=== PATIENT | female | born 1980 | race Caucasian/White ===

== ENCOUNTER → 2017-07-15 | Outpatient (CLI) | payer OTHER ==
[~2017-07-15] MED LIST: ACHYD1T PO; BIRTH CONTROL PO; CYCL10TA9 PO; FERR-57 PO; HYDR-3454 PO; IBP800T PO; IBUP200C92 PO; OMEP20CA12 PO; PREN1TAB39 PO
--- NOTE | 2017-07-15 14:32 | Diagnostic Imaging Report ---
INDICATION: survey. TECHNIQUE: Multiple real-time grayscale images were obtained over the gravid uterus. COMPARISON: None FINDINGS: heart rate is 152 beats per minute. The placenta is anterior. No placenta previa. The cervix is 4.5 cm in length and is closed. The maternal adnexa are obscured by bowel gas. survey demonstrates two umbilical arteries, visualized bladder, cord insertion, kidneys, stomach, four-chamber view, no ventriculomegaly and normal appearance of the posterior fossa. The spine is not well seen due to position. Biometrical measurements are as follows: Biparietal 4.5 cm, age 19 weeks 5 days. Head circumference 16.8 cm, age 19 weeks 4 days. Abdominal circumference 14.0 cm, age 19 weeks 3 days. Femur length 3.0 cm, age 19 weeks 3 days. Sonographic estimate age: 19 weeks 4 days. Sonographic estimated date of delivery: 12/05/17. Estimated Weight: 289 gm (+/- 42 gm). LMP percentile: 42%. heart rate: 152 beats per minute. number: 1 of 1. IMPRESSION: The spine is not well seen due to position. Ultrasound followup within two weeks to reevaluate is suggested. Dictated by: Dictated on workstation # [id number]
== END ==
LOC: RAD 12:18
PROVIDERS: ATTEND Obstetrics & Gynecology
DX: Z34.92 Encounter for supervision of normal pregnancy, unspecified, second trimester (principal); Z3A.19 19 weeks gestation of pregnancy
CPT/HCPCS: 76805

== ENCOUNTER → 2017-08-28 | Outpatient (CLI) | payer OTHER ==
--- NOTE | 2017-08-28 18:13 | Diagnostic Imaging Report ---
INDICATION: Evaluate anatomy not seen on the prior ultrasound TECHNIQUE: Multiple real-time grayscale images were obtained over the gravid uterus. COMPARISON: 07/15/2017 FINDINGS: A single live intrauterine gestation is noted in a cephalic presentation. The placenta is anteriorly located. heart rate is documented at 140 beats per minute. Evaluation of anatomy is limited secondary to advanced gestational age. Within the limitations of this exam, the spine is grossly unremarkable, though the spine is only imaged in the longitudinal plane and no axial imaging was performed. IMPRESSION: Single live intrauterine gestation in cephalic presentation with a heart rate of 140 beats per minute. Evaluation of the spine is limited, though grossly unremarkable based upon the submitted images. Dictated by: Dictated on workstation # [id number]
== END ==
LOC: RAD 17:35
PROVIDERS: ATTEND Obstetrics & Gynecology
DX: Z34.92 Encounter for supervision of normal pregnancy, unspecified, second trimester (principal); Z3A.00 Weeks of gestation of pregnancy not specified
CPT/HCPCS: 76816

== ENCOUNTER → 2017-11-11 | Outpatient (CLI) | payer OTHER ==
--- NOTE | 2017-11-11 13:29 | Diagnostic Imaging Report ---
INDICATION: Supervision of multigravida. TECHNIQUE: Multiple real-time grayscale images were obtained over the gravid uterus. COMPARISON: 08/28/2017. FINDINGS: There is a single living intrauterine in a cephalic presentation. The amniotic fluid index is 5.8. Placenta is anterior and to the left. There is no previa. Heart rate is 146 beats per minute. The biophysical profile score is 8/8. Biometrical measurements are as follows: Biparietal 9.32 cm, age 38 weeks 0 days. Head circumference 33.64 cm, age 38 weeks 4 days. Abdominal circumference 35.10 cm, age 39 weeks 1 days. Femur length 6.99 cm, age 35 weeks 6 days. Sonographic estimate age: 38 weeks 0 days. Sonographic estimated date of delivery: 11-25-17. Estimated Weight: 3403 gm (+/- 497 gm). LMP percentile: 89%. heart rate: 146 beats per minute. number: 1 of 1. IMPRESSION: 1. Single living intrauterine with sonographically estimated gestational age of 38 weeks 0 days and estimated date of confinement of 11/25/2017. This compares with an established gestational age of 36 weeks 4 days. 2. Low amniotic fluid index of 5.8. 3. Normal biophysical profile score of 8/8. Dictated by: Dictated on workstation # [id number]
== END ==
LOC: RAD 11:56
PROVIDERS: ATTEND Obstetrics & Gynecology
DX: O09.529 Supervision of elderly multigravida, unspecified trimester (principal); Z3A.38 38 weeks gestation of pregnancy
CPT/HCPCS: 76805; 76819

== ENCOUNTER → 2017-11-18 | Outpatient (CLI) | payer OTHER ==
--- NOTE | 2017-11-18 17:55 | Diagnostic Imaging Report ---
INDICATION: Advanced maternal age. FINDINGS: There is a single live fetus in a cephalic presentation. heart rate is recorded at 153 beats per minute. Placenta is anterior and to the left. Amniotic fluid index is 10.8 cm. biophysical profile score is normal at 8 out 8. IMPRESSION: Biophysical profile score 8 out 8. Dictated by: Dictated on workstation # [id number]
== END ==
LOC: RAD 13:45
PROVIDERS: ATTEND Obstetrics & Gynecology
DX: O09.523 Supervision of elderly multigravida, third trimester (principal); Z3A.00 Weeks of gestation of pregnancy not specified
CPT/HCPCS: 76819

== ENCOUNTER 2017-11-29 08:07 | Inpatient (IN) | payer OTHER ==
[2017-11-29] VITALS (45 sets, daily range): BP systolic 117–162; BP diastolic 61–92
[~2017-11-29] VITALS: Ht 170.2 cm; Wt 107.7 kg
[2017-11-29] MEDS ORDERED: OXYTOCIN/NORMAL SALINE 500 ML IV SCH ×2 (08:37→17:10)
[2017-11-29] MEDS ORDERED: D5 LR IV SOLUTION 1,000 ML IV SCH (08:37)
[2017-11-29] MEDS ORDERED: MINERAL OIL CONCENTRATE 99.9% 15 ML UDC TOP SCH (08:45)
[2017-11-29 09:27] LABS: BILIRUBIN,URINE NEGATIVE (NEGATIVE); CLARITY,URINE CLEAR; COLOR,URINE YELLOW; GLUCOSE, URINE (UA) NEGATIVE (NEGATIVE); KETONES,URINE NEGATIVE (NEGATIVE); LEUKOCYTE ESTERASE ,URINE NEGATIVE (NEGATIVE); NITRITE,URINE NEGATIVE (NEGATIVE); PH,URINE 6.5 (5-9); PROTEIN,URINE NEGATIVE (NEGATIVE); UROBILINOGEN,URINE NORMAL (NORMAL)
[2017-11-29 09:29] LABS: BASOPHILS % (AUTO) 0 % (0-10); EOSINOPHILS # (AUTO) 0.1 10^3/uL (0.0-0.3); EOSINOPHILS % (AUTO) 2 % (0-10); HEMATOCRIT 34 % (35-52); HEMOGLOBIN 11.6 G/DL (11.5-16.0); LYMPHOCYTES # (AUTO) 1.5 X 10^3 (1.0-4.0); LYMPHOCYTES % (AUTO) 20 % (12-44); MEAN CORPUSCULAR HEMOGLOBIN 30 PG (25-34); MEAN CORPUSCULAR HGB CONC 34 G/DL (32-36); MEAN CORPUSCULAR VOLUME 89 FL (80-99); MEAN PLATELET VOLUME 10.8 FL (7.4-10.4); MONOCYTES # (AUTO) 0.5 X 10^3 (0.0-1.0); MONOCYTES % (AUTO) 7 % (0-12); NEUTROPHILS # (AUTO) 5.3 X 10^3 (1.8-7.8); NEUTROPHILS % (AUTO) 71 % (42-75); PLATELET COUNT 209 10^3/uL (130-400); RED BLOOD COUNT 3.86 10^6/uL (4.35-5.85); RED CELL DISTRIBUTION WIDTH 15.5 % (10.0-14.5); WHITE BLOOD COUNT 7.5 10^3/uL (4.3-11.0)
[2017-11-29 09:38] LABS: RBC,URINE RARE /HPF
[2017-11-29 09:39] LABS: BACTERIA,URINE FEW /HPF; SQUAMOUS EPITHELIAL CELL,UR 0-2 /HPF; WBC,URINE 0-2 /HPF
[2017-11-29] MEDS ORDERED: LACTATED RINGERS 1,000 ML IV ONE (11:21)
[2017-11-29] MEDS ORDERED: SUFENTA 0.6MCG/ML BUPIVA 0.125 100 ML ONE (11:21)
[2017-11-29] MEDS ORDERED: fentaNYL INJECTION 100 MCG/2 ML AMP ONE (11:42)
[2017-11-29] MEDS ORDERED: BUPIVACAINE 0.25% 30 ML (SENSORCAINE) VIAL ONE (11:42)
[2017-11-29] MEDS ORDERED: CATHETER FLUSH 10 ML SYR IV SCH ×2 (14:00→22:00)
[2017-11-29] MEDS ORDERED: LACTATED RINGERS 1,000 ML IV SCH (14:26)
[2017-11-29] MEDS ORDERED: diphenhydrAMINE 50 MG/ML INJ (BENADRYL) IV PRN (14:30)
[2017-11-29] MEDS ORDERED: EPIDURAL (SUFENTA 0.6MCG/ML BUPIVA 0.125%) 100 ML BAG EPI PRN (14:30)
[2017-11-29] MEDS ORDERED: NALOXONE 0.4 MG/ML 1 ML (NARCAN) VIAL IV PRN ×2 (14:30)
[2017-11-29] MEDS ORDERED: ONDANSETRON 4 MG/2 ML (SDV) Z0FRAN IV PRN (14:30)
[2017-11-29] MEDS ORDERED: METOCLOPRAMIDE INJ 10 MG/2 ML (REGLAN) IV PRN (14:30)
[2017-11-29] MEDS ORDERED: LIDOCAINE/EPI 2% 1:200,00 (XYLOCAINE) 10 ML VIAL ONE (16:24)
[2017-11-29] MEDS ORDERED: MISOPROSTOL 200 MCG (CYTOTEC) TABLET ONE (16:55)
[2017-11-29] MEDS ORDERED: WITCH HAZEL(TUCKS) 40 EA JAR TOP PRN (17:15)
[2017-11-29] MEDS ORDERED: DIBUCAINE (NUPERCAINAL) 1% OINT 30 GM TOP PRN (17:15)
[2017-11-29] MEDS ORDERED: TETANUS,DIPTH,PERTUSS P/F (BOOSTRIX) 0.5 ML VIAL IM ONE (17:15)
[2017-11-29] MEDS ORDERED: ACETAMINOPHEN 500 MG TAB (TYLENOL) PO PRN (17:15)
[2017-11-29] MEDS ORDERED: MEASLES,MUMPS,RUBELLA 1 EA INJ SQ ONE (17:15)
[2017-11-29] MEDS ORDERED: MISOPROSTOL 200 MCG (CYTOTEC) TABLET PR NR (17:15)
[2017-11-29] MEDS ORDERED: BENZOCAINE/MENTHOL (DERMOPLAST) 56 ML CAN TP PRN (17:15)
--- NOTE | 2017-11-29 17:22 | OB Labor & Delivery Record ---
Vag Delivery Note Vag Delivery Note Date of Delivery: 11/29/17 Preoperative Diagnosis: Cris Cardona is a 39 /Para 9/4 ,Gestational Age 39 weeks with Advanced maternal age, induction Postoperative Diagnosis: Same Surgeon: BRITT OSWALD Anesthesia: epidural Delivery Type: vaginal Findings: Viable female , apgars 8/9, weight 7#13oz Lacerations: 1st Intact placenta with 3 vessel cord. No nuchal cord, body cord or shoulder dystocia Cytotec 800 mcg placed for hemorrhage prophylaxis Estimated Blood Loss: 750ml Complications: None Condition: Stable Description of Procedure: The patient is a 39 /Para 9/4 ,Gestational Age 39 weeks with Advanced maternal age, who presented for induction. She was admitted and informed consent was obtained. Her labor course was remarkable for AROM, pitocin augmentation and epidural. She progressed to complete dilatation and began to push. She was then set up for delivery. The infant's head was delivered atraumatically in the ANUPAM position, There was a large amount of bleeding with delivery of the head (5-700 ml). The shoulders and remainder of the infant's body were then delivered without difficulty. Upon delivery, the head was held below the level of the perineum and the mouth and nares were bulb suctioned. The cord was doubly clamped and cut and the was handed off to the pediatric staff. An intact placenta with 3-vessel cord delivered via Tish and there was found to be minimal bleeding.~ Vigorous fundal massage was performed and the fundus was found to be firm. IV oxytocin was given. Examination of the vagina and perineum revealed a 1st laceration repaired in the usual fashion with 3-0 vicryl suture. due to continued bleeding, though slowing, she was given pr cytocec. Following the repair, sponge, instrument and needle counts were correct. Mom and baby were both in stable condition in the labor suite. Vitals - Labs Vital Signs - I&O Vital Signs Date Time Temp Pulse Resp B/P (MAP) Pulse Ox O2 Delivery O2 Flow Rate FiO2 11/29/17 15:50 83 18 128/75 (92) 99 Room Air 11/29/17 15:35 84 18 140/83 (102) 99 Room Air 11/29/17 15:20 80 18 134/78 (96) 100 Room Air 11/29/17 15:05 93 18 127/76 (93) 99 Room Air 4/6/18 14:50 84 18 140/83 (102) 100 Room Air 11/29/17 14:20 74 18 140/72 (94) 99 Room Air 11/29/17 14:05 74 18 140/72 (94) 99 Room Air 11/29/17 13:50 79 18 130/77 (94) 100 Room Air 11/29/17 13:35 79 18 131/73 (92) 99 Room Air 11/29/17 13:20 78 18 125/75 (92) 100 Room Air 11/29/17 13:05 97.0 68 18 149/77 (101) 100 Room Air 11/29/17 12:50 83 18 149/77 (101) 98 Room Air 11/29/17 12:35 83 18 149/77 (101) 98 Room Air 11/29/17 12:16 88 18 117/74 (88) 98 Room Air 11/29/17 12:12 78 18 135/78 (97) 99 Room Air 11/29/17 12:06 83 18 149/77 (101) 98 Room Air 11/29/17 12:03 92 18 152/76 (101) 98 Room Air 11/29/17 12:00 95 18 158/78 (104) 98 Room Air 11/29/17 11:57 90 18 145/91 (109) 98 Room Air 11/29/17 11:54 83 18 145/92 (109) 99 Room Air 11/29/17 11:50 85 18 129/83 (98) Room Air 11/29/17 11:35 85 18 129/83 (98) Room Air 11/29/17 11:20 80 18 130/80 (97) Room Air 11/29/17 11:05 80 18 144/87 (106) Room Air 11/29/17 10:50 80 18 144/87 (106) Room Air 11/29/17 10:35 76 18 130/83 (99) Room Air 11/29/17 10:20 76 18 127/85 (99) Room Air 11/29/17 10:05 78 18 128/78 (95) Room Air 11/29/17 09:50 78 18 128/78 (95) Room Air 11/29/17 09:35 90 18 118/77 (91) Room Air 4/6/18 09:20 86 18 119/80 (93) Room Air 11/29/17 09:05 87 18 122/82 (95) Room Air 11/29/17 08:25 97.7 85 18 129/79 (96) Room Air Labs Laboratory Tests 11/29/17 09:00: Urine Color YELLOW, Urine Clarity CLEAR, Urine pH 6.5, Urine Specific [place] 1.010L, Urine Protein NEGATIVE, Urine Glucose (UA) NEGATIVE, Urine Ketones NEGATIVE, Urine Nitrite NEGATIVE, Urine Bilirubin NEGATIVE, Urine Urobilinogen NORMAL, Urine Leukocyte Esterase NEGATIVE, Urine RBC (Auto) NEGATIVE, Urine RBC RARE, Urine WBC 0-2, Urine Squamous Epithelial Cells 0-2, Urine Crystals NONE, Urine Bacteria FEWH, Urine Casts NONE, Urine Mucus NEGATIVE, Urine Culture Indicated NO 11/29/17 09:20: White Blood Count 7.5, Red Blood Count 3.86L, Hemoglobin 11.6, Hematocrit 34L, Mean Corpuscular Volume 89, Mean Corpuscular Hemoglobin 30, Mean Corpuscular Hemoglobin Concent 34, Red Cell Distribution Width 15.5H, Platelet Count 209, Mean Platelet Volume 10.8H, Neutrophils (%) (Auto) 71, Lymphocytes (%) (Auto) 20 , Monocytes (%) (Auto) 7, Eosinophils (%) (Auto) 2, Basophils (%) (Auto) 0, Neutrophils # (Auto) 5.3, Lymphocytes # (Auto) 1.5, Monocytes # (Auto) 0.5, Eosinophils # (Auto) 0.1, Basophils # (Auto) 0.0 BRITT OSWALD DO Nov 29, 2017 17:22
[2017-11-29] MEDS: IBUPROFEN 600 MG (MOTRIN) TAB PO SCH (17:23)
[2017-11-29] MEDS ORDERED: METHYLERGONOVINE 0.2 MG (MEHTERGINE) TAB PO ONE (20:53)
[2017-11-30] MEDS: DOCUSATE SODIUM 100 MG (COLACE) CAP PO SCH ×2 (00:02→09:24)
[2017-11-30] MEDS: IBUPROFEN 600 MG (MOTRIN) TAB PO SCH ×3 (00:02→12:25)
[2017-11-30 03:11] VITALS: BP 116/79
[2017-11-30] MEDS: METHYLERGONOVINE 0.2 MG (MEHTERGINE) TAB PO SCH ×3 (03:13→15:16)
[2017-11-30 05:21] LABS: BASOPHILS % (AUTO) 0 % (0-10); EOSINOPHILS # (AUTO) 0.1 10^3/uL (0.0-0.3); EOSINOPHILS % (AUTO) 1 % (0-10); HEMATOCRIT 28 % (35-52); HEMOGLOBIN 9.6 G/DL (11.5-16.0); LYMPHOCYTES # (AUTO) 2.5 X 10^3 (1.0-4.0); LYMPHOCYTES % (AUTO) 22 % (12-44); MEAN CORPUSCULAR HEMOGLOBIN 30 PG (25-34); MEAN CORPUSCULAR HGB CONC 34 G/DL (32-36); MEAN CORPUSCULAR VOLUME 89 FL (80-99); MEAN PLATELET VOLUME 10.6 FL (7.4-10.4); MONOCYTES # (AUTO) 0.9 X 10^3 (0.0-1.0); MONOCYTES % (AUTO) 8 % (0-12); NEUTROPHILS # (AUTO) 7.8 X 10^3 (1.8-7.8); NEUTROPHILS % (AUTO) 69 % (42-75); PLATELET COUNT 174 10^3/uL (130-400); RED BLOOD COUNT 3.19 10^6/uL (4.35-5.85); RED CELL DISTRIBUTION WIDTH 15.3 % (10.0-14.5); WHITE BLOOD COUNT 11.3 10^3/uL (4.3-11.0)
[2017-11-30 06:06] VITALS: BP 120/82
[2017-11-30] MEDS ORDERED: PRENATAL VITAMIN 1 EA TAB PO SCH (07:00)
[2017-11-30] MEDS ORDERED: FERROUS SULF 325 MG (IRON) TAB PO SCH (08:00)
--- NOTE | 2017-11-30 08:35 | Postpartum Progress Note ---
Note Note Day # 1 s/p , PPH Subjective: Patient is without complaints. Ambulating, voiding. Tolerating a regular diet without nausea or vomiting. Normal lochia. Pain is well controlled with oral pain medications. Objective: Laboratory Tests Test 11/29/17 09:00 11/29/17 09:20 11/30/17 05:10 Range/Units Urine Color YELLOW Urine Clarity CLEAR Urine pH 6.5 5-9 Urine Specific [place] 1.010 L 1.016-1.022 Urine Protein NEGATIVE NEGATIVE Urine Glucose (UA) NEGATIVE NEGATIVE Urine Ketones NEGATIVE NEGATIVE Urine Nitrite NEGATIVE NEGATIVE Urine Bilirubin NEGATIVE NEGATIVE Urine Urobilinogen NORMAL NORMAL MG/DL Urine Leukocyte Esterase NEGATIVE NEGATIVE Urine RBC (Auto) NEGATIVE NEGATIVE Urine RBC RARE /HPF Urine WBC 0-2 /HPF Urine Squamous Epithelial Cells 0-2 /HPF Urine Crystals NONE /LPF Urine Bacteria FEW H /HPF Urine Casts NONE /LPF Urine Mucus NEGATIVE /LPF Urine Culture Indicated NO White Blood Count 7.5 11.3 H 4.3-11.0 10^3/uL Red Blood Count 3.86 L 3.19 L 4.35-5.85 10^6/uL Hemoglobin 11.6 9.6 L 11.5-16.0 G/DL Hematocrit 34 L 28 L 35-52 % Mean Corpuscular Volume 89 89 80-99 FL Mean Corpuscular Hemoglobin 30 30 25-34 PG Mean Corpuscular Hemoglobin Concent 34 34 32-36 G/DL Red Cell Distribution Width 15.5 H 15.3 H 10.0-14.5 % Platelet Count 209 174 130-400 10^3/uL Mean Platelet Volume 10.8 H 10.6 H 7.4-10.4 FL Neutrophils (%) (Auto) 71 69 42-75 % Lymphocytes (%) (Auto) 20 22 12-44 % Monocytes (%) (Auto) 7 8 0-12 % Eosinophils (%) (Auto) 2 1 0-10 % Basophils (%) (Auto) 0 0 0-10 % Neutrophils # (Auto) 5.3 7.8 1.8-7.8 X 10^3 Lymphocytes # (Auto) 1.5 2.5 1.0-4.0 X 10^3 Monocytes # (Auto) 0.5 0.9 0.0-1.0 X 10^3 Eosinophils # (Auto) 0.1 0.1 0.0-0.3 10^3/uL Basophils # (Auto) 0.0 0.0 0.0-0.1 10^3/uL Vital Signs 11/30/17 06:06 Temp 97.4 Pulse 67 Resp 18 B/P (MAP) 120/82 (95) Pulse Ox 98 O2 Delivery Room Air Physical Exam: General - Alert and oriented, no apparent distress Abdomen - Soft, appropriately tender to palpation, non-distended, fundus firm at umbilicus Extremities - no edema, negative Clara's bilaterally [] Assessment: [] post- day # [], status post [] vaginal delivery. Recovering well, hemodynamically stable [] Plan: Routine care. Encourage breast feeding. Encourage ambulation. Ferrous sulfate supplementation. Plan for discharge [] Vitals - Labs Vital Signs - I&O Vital Signs Date Time Temp Pulse Resp B/P (MAP) Pulse Ox O2 Delivery O2 Flow Rate FiO2 11/30/17 06:06 97.4 67 18 120/82 (95) 98 Room Air 11/30/17 03:11 97.8 71 18 116/79 (91) 99 Room Air 11/29/17 23:03 97.3 73 18 127/69 (88) Room Air 11/29/17 21:02 99.6 109 18 123/78 (93) 11/29/17 18:48 100 18 129/83 (98) Room Air 11/29/17 18:33 101 18 121/61 (81) Room Air 11/29/17 18:18 104 18 162/85 (110) Room Air 11/29/17 18:03 83 18 141/75 (97) Room Air 11/29/17 17:48 82 18 136/82 (100) Room Air 11/29/17 17:35 99.0 88 18 152/90 (110) Room Air 11/29/17 17:15 90 18 148/76 (100) Room Air 11/29/17 17:00 83 18 145/92 (109) Room Air 11/29/17 16:20 86 18 143/76 (98) 99 Room Air 11/29/17 16:05 87 18 138/75 (96) 99 Room Air 11/29/17 15:50 83 18 128/75 (92) 99 Room Air 11/29/17 15:35 84 18 140/83 (102) 99 Room Air 11/29/17 15:20 80 18 134/78 (96) 100 Room Air 11/29/17 15:05 93 18 127/76 (93) 99 Room Air 11/29/17 14:50 84 18 140/83 (102) 100 Room Air 11/29/17 14:20 74 18 140/72 (94) 99 Room Air 11/29/17 14:05 74 18 140/72 (94) 99 Room Air 11/29/17 13:50 79 18 130/77 (94) 100 Room Air 11/29/17 13:35 79 18 131/73 (92) 99 Room Air 11/29/17 13:20 78 18 125/75 (92) 100 Room Air 11/29/17 13:05 97.0 68 18 149/77 (101) 100 Room Air 11/29/17 12:50 83 18 149/77 (101) 98 Room Air 11/29/17 12:35 83 18 149/77 (101) 98 Room Air 11/29/17 12:16 88 18 117/74 (88) 98 Room Air 11/29/17 12:12 78 18 135/78 (97) 99 Room Air 11/29/17 12:06 83 18 149/77 (101) 98 Room Air 11/29/17 12:03 92 18 152/76 (101) 98 Room Air 11/29/17 12:00 95 18 158/78 (104) 98 Room Air 11/29/17 11:57 90 18 145/91 (109) 98 Room Air 11/29/17 11:54 83 18 145/92 (109) 99 Room Air 11/29/17 11:50 85 18 129/83 (98) Room Air 11/29/17 11:35 85 18 129/83 (98) Room Air 11/29/17 11:20 80 18 130/80 (97) Room Air 11/29/17 11:05 80 18 144/87 (106) Room Air 11/29/17 10:50 80 18 144/87 (106) Room Air 11/29/17 10:35 76 18 130/83 (99) Room Air 11/29/17 10:20 76 18 127/85 (99) Room Air 11/29/17 10:05 78 18 128/78 (95) Room Air 11/29/17 09:50 78 18 128/78 (95) Room Air 11/29/17 09:35 90 18 118/77 (91) Room Air 11/29/17 09:20 86 18 119/80 (93) Room Air 11/29/17 09:05 87 18 122/82 (95) Room Air Labs Laboratory Tests 11/29/17 09:00: Urine Color YELLOW, Urine Clarity CLEAR, Urine pH 6.5, Urine Specific [place] 1.010L, Urine Protein NEGATIVE, Urine Glucose (UA) NEGATIVE, Urine Ketones NEGATIVE, Urine Nitrite NEGATIVE, Urine Bilirubin NEGATIVE, Urine Urobilinogen NORMAL, Urine Leukocyte Esterase NEGATIVE, Urine RBC (Auto) NEGATIVE, Urine RBC RARE, Urine WBC 0-2, Urine Squamous Epithelial Cells 0-2, Urine Crystals NONE, Urine Bacteria FEWH, Urine Casts NONE, Urine Mucus NEGATIVE, Urine Culture Indicated NO 11/29/17 09:20: White Blood Count 7.5, Red Blood Count 3.86L, Hemoglobin 11.6, Hematocrit 34L, Mean Corpuscular Volume 89, Mean Corpuscular Hemoglobin 30, Mean Corpuscular Hemoglobin Concent 34, Red Cell Distribution Width 15.5H, Platelet Count 209, Mean Platelet Volume 10.8H, Neutrophils (%) (Auto) 71, Lymphocytes (%) (Auto) 20 , Monocytes (%) (Auto) 7, Eosinophils (%) (Auto) 2, Basophils (%) (Auto) 0, Neutrophils # (Auto) 5.3, Lymphocytes # (Auto) 1.5, Monocytes # (Auto) 0.5, Eosinophils # (Auto) 0.1, Basophils # (Auto) 0.0 11/30/17 05:10: White Blood Count 11.3H, Red Blood Count 3.19L, Hemoglobin 9.6L, Hematocrit 28L , Mean Corpuscular Volume 89, Mean Corpuscular Hemoglobin 30, Mean Corpuscular Hemoglobin Concent 34, Red Cell Distribution Width 15.3H, Platelet Count 174, Mean Platelet Volume 10.6H, Neutrophils (%) (Auto) 69, Lymphocytes (%) (Auto) 22 , Monocytes (%) (Auto) 8, Eosinophils (%) (Auto) 1, Basophils (%) (Auto) 0, Neutrophils # (Auto) 7.8, Lymphocytes # (Auto) 2.5, Monocytes # (Auto) 0.9, Eosinophils # (Auto) 0.1, Basophils # (Auto) 0.0 BRITT OSWALD DO Nov 30, 2017 08:35
[2017-11-30] MEDS ORDERED: DOCUSATE CALCIUM 240 MG (SURFAK) CAP PO SCH (09:00)
[2017-11-30] MEDS ORDERED: DOCU100C37 PO (09:12)
[2017-11-30] MEDS ORDERED: ACET-77 PO (09:12)
[2017-11-30] MEDS ORDERED: DIBU30OI TOP (09:12)
--- NOTE | 2017-11-30 09:15 | Discharge Inst-Women's Service ---
Discharge Inst-Women's Serv Depart Medication/Instructions New, Converted or Re-Newed RX: RX on Chart Final Diagnosis advanced maternal hemorrhage post hemorrhage epidural vaginal delivery Consults/Follow Up Additional Follow Up: Yes (6 weeks for pp exam) Activity Activity: Activity as Tolerated Driving Instructions: You May Drive NO SMOKING: NO SMOKING Nothing Inside Vagina: No Douching, No [place], No Tampons Diet Discharge Diet: No Restrictions Symptoms to Report to : Bleeding Excessive, Pain Increased, Fever Over 101 Degrees F, Vaginal Bleeding Increase, Cramps in Feet or Legs, Vaginal Discharge Foul For Any Problems or Questions: Contact Your Physician BRITT OSWALD DO Nov 30, 2017 09:15
[2017-11-30 09:22] VITALS: BP 121/83
--- NOTE | 2017-11-30 10:58 | Anesthesia-Regional Post-Op ---
Regional Patient Condition Mental Status: Alert, Oriented x3 Circulation: Same as Pre-Op Headache: Absent Sensation: Full Recovery Motor Block: Absent Post Op Complications Complications None Follow Up Care/Instructions Patient Instructions None needed. Anesthesia/Patient Condition Patient is doing well, no complaints, stable vital signs, no apparent adverse anesthesia problems. No complications reported per nursing. RENEA HALL CRNA Nov 30, 2017 10:58
[2017-11-30 12:25] VITALS: BP 117/78
[2017-11-30 16:25] VITALS: BP 131/86
[2017-11-30] MEDS ORDERED: METHYLERGONOVINE 0.2 MG (MEHTERGINE) TAB PO SCH (21:00)
== END 2017-11-30 18:25 | disposition home or self-care (01) | DRG 774 ==
LOC: LDRP 08:07
PROVIDERS: ADMIT Obstetrics & Gynecology; ATTEND Obstetrics & Gynecology
PROC: 10E0XZZ Delivery of Products of Conception, External Approach (ICD-10-PCS; principal; 2017-11-29)
PROC: 0HQ9XZZ Repair Perineum Skin, External Approach (ICD-10-PCS; 2017-11-29)
DX: O70.0 First degree perineal laceration during delivery (principal); O72.1 Other immediate postpartum hemorrhage; O09.523 Supervision of elderly multigravida, third trimester; Z3A.39 39 weeks gestation of pregnancy; Z37.0 Single live birth
CPT/HCPCS: 36415; 81000; 85025; 86850; 86900; 86901

== ENCOUNTER → 2019-11-04 | Outpatient (CLI) | payer OTHER ==
[~2019-11-04] MED LIST changes: +ACET-78 PO; +DIBU30OI TOP; +DOCU100C37 PO
--- NOTE | 2019-11-04 12:25 | Diagnostic Imaging Report ---
INDICATION: Routine screening. COMPARISON: No prior mammograms are available for comparison. This is a baseline study. 2-D and 3-D bilateral screening mammography was performed. The current study was also evaluated with a Computer Aided Detection (CAD) system. 3-D tomosynthesis was also performed and reviewed. FINDINGS: Scattered fibroglandular densities are identified bilaterally. No mass or malignant-appearing microcalcifications are seen. Axillae are unremarkable. IMPRESSION: No mammographic features suspicious for malignancy are identified. ACR BI-RADS Category 1: Negative. Result letter will be mailed to the patient. Note: At least 10% of breast cancer is not imaged by mammography. Dictated by: Dictated on workstation # [id number]
== END ==
LOC: RAD 10:25
PROVIDERS: ATTEND Obstetrics & Gynecology
DX: Z12.31 Encounter for screening mammogram for malignant neoplasm of breast (principal)
CPT/HCPCS: 77067

== ENCOUNTER 2019-12-29 06:21 | Outpatient (RCR) | payer OTHER ==
[~2019-12-29] VITALS: Ht 170.2 cm; Wt 100.0 kg
[2019-12-29] MEDS ORDERED: bcp PO (09:48)
[2019-12-29] MEDS ORDERED: CETI10TA17 PO (09:48)
[2020-01-01] MEDS ORDERED: OXYC5TAB96 PO (12:45)
[2020-01-01] MEDS ORDERED: IBUP-1773 PO (12:45)
[2020-01-01] MEDS ORDERED: ACET-2267 PO (12:45)
== END 2019-12-29 09:56 | disposition home or self-care (01) ==
LOC: PREOP 06:21 → EDSTATUS 09:30 → PREOP 09:56
PROVIDERS: ATTEND Obstetrics & Gynecology
DX: Z01.812 Encounter for preprocedural laboratory examination (principal); Z11.59 Encounter for screening for other viral diseases; N92.0 Excessive and frequent menstruation with regular cycle
CPT/HCPCS: 87635